=== PATIENT | male | born 1965 ===

== ENCOUNTER 2018-12-17 05:00 | Day surgery (SDC) | payer OTHER ==
[~2018-12-17 05:00] MED LIST: ACID REDUCER20 M1 PO; ALPRAZOLAM ODT1 MG PO; ARIPIPRAZOLE OD10 MG PO; ASPIR 8181 MG PO; ATORVASTATIN CA40 MG PO; COZAAR25 MG PO; DEPAKOTE ER500 MG PO; FORTAMET500 MG PO; PROAIR HFA8.5 GM IH; UROXATRAL10 MG PO
== END 2018-12-17 11:08 | disposition home or self-care (01) ==
LOC: CIR.AMB 05:00
DX: G56.02 Carpal tunnel syndrome, left upper limb (principal)